=== PATIENT | female | born 1980 | race Caucasian/White ===

== ENCOUNTER 2016-04-27 15:00 | Outpatient (RCR) | payer BC ==
[2005-11-25 07:00] VITALS: PULSE 78; TEMP 98.4
== END 2016-05-24 12:49 | disposition home or self-care (01) ==
LOC: WSPT 15:00
DX: M54.5 Low back pain (principal); S39.012D Strain of muscle, fascia and tendon of lower back, subsequent encounter; X58.XXXD Exposure to other specified factors, subsequent encounter